=== PATIENT | female | born 1965 | race African-American/Black ===

== ENCOUNTER 2017-12-25 08:33 | Outpatient (CLI) | payer MEDICARE ==
--- NOTE | 2017-12-25 11:15 | CT ---
CT OF THE ABDOMEN WITH AND WITHOUT IV CONTRAST: INDICATION: Left adrenal mass. COMPARISON: Prior exam dated 05/15/16 and 05/10/16. TECHNIQUE: Multiple CT images were obtained of the abdomen utilizing 100 cc of Isovue 370. The adrenal mass pro tocol was followed. FINDINGS: There is a 1.6 cm left adrenal mass extending off the medial limb of he left adrenal gland. Precont rast Hounsfield units were 34.98. Venous phase Hounsfield units was 148.18. The 15-minuted delayed Hounsfield unit was 79.90. Absolute washout percentage was 60.3%. Relative washout was 46.1%. Ther e is a stable small cyst within the left hepatic lobe. There is a PEG catheter within the left upper quadrant of the abdomen. There is partial visualization of ventriculoperitoneal catheter projecting over the right hepatic dome. There is a small right pleural effusion. There is mild left basilar a telectasis. There are mild scattered vascular calcifications. No free fluid is evident within the a bdomen. There is thoracolumbar scoliosis. IMPRESSION: 1. Washout characteristics of the 1.6 cm left adrenal lesions is consistent with an adrenal adenoma. 2. Stable left hepatic lobe cyst. 3. Ventriculoperitoneal PEG catheter. POS: [facility]
[2017-12-25] MEDS ORDERED: Iopamidol 370 76% 100 ML VIAL ONE (13:54)
== END 2017-12-25 08:34 | disposition home or self-care (01) ==
LOC: CT 08:33
PROVIDERS: ATTEND Family Medicine
DX: E27.9 Disorder of adrenal gland, unspecified (principal); K76.89 Other specified diseases of liver; Z93.1 Gastrostomy status
CPT/HCPCS: 74170

== ENCOUNTER 2018-04-02 09:49 | Emergency (ER) | payer MEDICARE ==
--- NOTE | 2018-04-02 12:02 | RAD ---
1 VIEW ABDOMEN: Date: 04/02/18 HISTORY: PEG tube check. COMPARISON: 03/19/15. FINDINGS: Single view of the abdomen demonstrates contrast opacifying the stomach via a percutaneous feeding tu be. Contrast extends into the proximal small bowel. IMPRESSION: Feeding tube opacifies the stomach after administration of contrast. POS: [facility]
[2018-04-02] MEDS ORDERED: GASTROGRAFIN 30 ML BOT ONE (13:28)
== END 2018-04-02 12:22 | disposition home or self-care (01) ==
LOC: ERS 09:49
DX: K94.23 Gastrostomy malfunction (principal); E78.5 Hyperlipidemia, unspecified; I10 Essential (primary) hypertension; F32.9 Major depressive disorder, single episode, unspecified; Z79.899 Other long term (current) drug therapy
CPT/HCPCS: 74018

== ENCOUNTER 2018-08-15 19:51 | Emergency (ER) | payer MEDICARE ==
--- NOTE | 2018-08-15 20:20 | RAD ---
RIGHT HIP TWO VIEW 08/15/18 HISTORY: Fall. COMPARISON: None. FINDINGS: No fracture or malalignment. Soft tissues are unremarkable. IMPRESSION: No acute fracture or malalignment. POS: [facility]
--- NOTE | 2018-08-15 20:22 | RAD ---
PELVIS ONE VIEW: 08/15/18 HISTORY: Fall. COMPARISON: None. FINDINGS: No fracture. No malalignment. Obturator rings are intact. SI joints are unremarkable. IMPRESSION: No acute displaced fracture or malalignment. POS: [facility]
== END 2018-08-15 20:48 | disposition home or self-care (01) ==
LOC: ERS 19:51
DX: S70.01XA Contusion of right hip, initial encounter (principal); E78.5 Hyperlipidemia, unspecified; I10 Essential (primary) hypertension; Z86.73 Personal history of transient ischemic attack (TIA), and cerebral infarction without residual deficits; Z79.899 Other long term (current) drug therapy; W18.30XA Fall on same level, unspecified, initial encounter
CPT/HCPCS: 72170

== ENCOUNTER 2018-11-15 03:20 | Emergency (ER) | payer MEDICARE | END 2018-11-15 05:27 | disposition home or self-care (01) | LOC: ERS 03:20 | DX: Z43.1 Encounter for attention to gastrostomy (principal); I10 Essential (primary) hypertension; E78.00 Pure hypercholesterolemia, unspecified; E78.5 Hyperlipidemia, unspecified; Z86.73 Personal history of transient ischemic attack (TIA), and cerebral infarction without residual deficits | CPT/HCPCS: 43760 ==

== ENCOUNTER 2019-04-11 14:08 | Emergency (ER) | payer MEDICARE | END 2019-04-11 15:26 | disposition home or self-care (01) | LOC: ERS 14:08 | DX: K94.23 Gastrostomy malfunction (principal); E78.5 Hyperlipidemia, unspecified; I10 Essential (primary) hypertension; Z86.73 Personal history of transient ischemic attack (TIA), and cerebral infarction without residual deficits; Z79.899 Other long term (current) drug therapy | CPT/HCPCS: 43762; B4087 ==

== ENCOUNTER 2019-07-17 05:11 | Emergency (ER) | payer MEDICARE | END 2019-07-17 05:55 | disposition home or self-care (01) | LOC: ERS 05:11 | DX: K94.23 Gastrostomy malfunction (principal); I10 Essential (primary) hypertension; E78.5 Hyperlipidemia, unspecified; E78.00 Pure hypercholesterolemia, unspecified; Z86.73 Personal history of transient ischemic attack (TIA), and cerebral infarction without residual deficits | CPT/HCPCS: 43762; B4087 ==

== ENCOUNTER 2020-01-21 21:27 | Emergency (ER) | payer MEDICARE, OTHER ==
[~2020-01-21 21:27] MED LIST: GASTROGRAFIN 30 ML BOT ONE
--- NOTE | 2020-01-21 22:24 | RAD ---
Abdomen one view HISTORY: PEG tube replacement. COMPARISON: 04/02/2018. FINDINGS: Radiopaque feeding catheter over the left upper quadrant is in place with at the level of t he gastric body. Contrast material is present within the incompletely distended stomach. No evidence of feeding catheter complication. Large amount of stool throughout the colon. No evidence of bowel obstruction. Ventriculoperitoneal sh unt is partially visualized. IMPRESSION: Left upper quadrant peg tube appears in good radiographic position.
== END 2020-01-21 22:35 | disposition home or self-care (01) ==
LOC: ERS 21:27
DX: Z43.1 Encounter for attention to gastrostomy (principal); I10 Essential (primary) hypertension; E78.5 Hyperlipidemia, unspecified; F32.9 Major depressive disorder, single episode, unspecified; Z86.73 Personal history of transient ischemic attack (TIA), and cerebral infarction without residual deficits
CPT/HCPCS: 43762; 74018; Q9963

== ENCOUNTER 2020-05-12 12:50 | Emergency (ER) | payer MEDICARE | END 2020-05-12 14:09 | disposition home or self-care (01) | LOC: ERS 12:50 | DX: K94.23 Gastrostomy malfunction (principal); I10 Essential (primary) hypertension; E78.5 Hyperlipidemia, unspecified; F32.9 Major depressive disorder, single episode, unspecified; Z79.899 Other long term (current) drug therapy | CPT/HCPCS: 43762 ==

== ENCOUNTER 2020-08-01 05:09 | Emergency (ER) | payer MEDICARE ==
--- NOTE | 2020-08-01 07:26 | RAD ---
Radiograph abdomen one view: 08/01/2020 5:38 AM HISTORY: 55-year-old female with displaced PEG tube FINDINGS: Contrast injection into PEG tube results in contrast opacification of a nondistended lumen of gastric fundus and corpus. No leakage. IMPRESSION: Satisfactory position of percutaneous gastrostomy tube.
== END 2020-08-01 05:50 | disposition home or self-care (01) ==
LOC: ERS 05:09
DX: Z46.59 Encounter for fitting and adjustment of other gastrointestinal appliance and device (principal); I10 Essential (primary) hypertension; E78.5 Hyperlipidemia, unspecified; F32.9 Major depressive disorder, single episode, unspecified; Z79.899 Other long term (current) drug therapy; Z86.73 Personal history of transient ischemic attack (TIA), and cerebral infarction without residual deficits
CPT/HCPCS: 74018

== ENCOUNTER 2020-08-06 06:41 | Emergency (ER) | payer MEDICARE | END 2020-08-06 07:14 | disposition home or self-care (01) | LOC: ERS 06:41 | DX: Z46.59 Encounter for fitting and adjustment of other gastrointestinal appliance and device (principal); I10 Essential (primary) hypertension; E78.5 Hyperlipidemia, unspecified; Z86.73 Personal history of transient ischemic attack (TIA), and cerebral infarction without residual deficits; F32.9 Major depressive disorder, single episode, unspecified; Z79.899 Other long term (current) drug therapy | CPT/HCPCS: 43762 ==

== ENCOUNTER 2020-08-22 14:51 | Outpatient (CLI) | payer MEDICARE ==
--- NOTE | 2020-08-22 15:15 | RAD ---
2 views of the right hip: 08/22/2020 COMPARISON: 08/15/2018 HISTORY: Right hip pain, fall a few weeks ago FINDINGS: Catheter tubing overlies the left hemipelvis. There is mild superior joint space narrowing of the right hip with mild lateral acetabular osteophyte formation. No acute fracture or dislocation is seen. Stable irregularity is seen involving the inferior pubic rami. IMPRESSION: No acute osseous abnormality.
--- NOTE | 2020-08-22 15:21 | RAD ---
EXAM: XR Pelvis AP STANDARD PROVIDED CLINICAL HISTORY: Right hip pain. Patient fell a couple weeks ago. COMPARISON: 08/15/2018 FINDINGS: No fracture or dislocation is seen. There is partial visualization of a ventriculoperitoneal shunt ca theter overlying the right hemipelvis with radiopaque catheter overlying left lower quadrant which may represent partial visualization of a gastrostomy tube. IMPRESSION: No acute osseous abnormality.
== END 2020-08-22 14:52 | disposition home or self-care (01) ==
LOC: SCSRAD 14:51
PROVIDERS: ATTEND Family Medicine
DX: M25.551 Pain in right hip (principal)
CPT/HCPCS: 72170

== ENCOUNTER 2021-08-29 21:11 | Emergency (ER) | payer MEDICARE | END 2021-08-29 23:20 | disposition home or self-care (01) | LOC: ERS 21:11 | DX: K94.23 Gastrostomy malfunction (principal); I10 Essential (primary) hypertension; E78.5 Hyperlipidemia, unspecified; Z79.899 Other long term (current) drug therapy; Z86.73 Personal history of transient ischemic attack (TIA), and cerebral infarction without residual deficits | CPT/HCPCS: 43762; 74018; Q9963 ==

== ENCOUNTER 2022-01-10 09:19 | Inpatient (IN) | payer MEDICARE ==
[2022-01-10] MEDS ORDERED: hydrALAZINE 20 MG/ML VIAL ONE (09:40)
[2022-01-10] MEDS ORDERED: Iopamidol 370 76% 100 ML VIAL ONE (09:44)
[2022-01-10 09:49] LABS: #Eosinphils 0.1 thou/uL (0.0-0.7); #Monocytes 0.5 thou/uL (0.11-0.59); #Neutrophils 4.2 thou/uL (1.40-6.50); %Basophils 0.2 % (0.0-1.0); %Eosinophils 1.5 % (0.0-10.0); %Neutrophils 62.3 % (42.0-75.0); Hemoglobin 14.2 g/dL (12.0-16.0); Mean Corpuscular HGB CONC 31.6 g/dL (32.0-36.0); Mean Corpuscular Hemoglobin 27.4 pg (27.0-31.0); Mean Corpuscular Volume 86.8 fL (78.0-98.0); Mean Platelet Volume 8.6 fL (7.4-10.4); Platelet Count 161 thou/uL (130-400); RBC Distribution Width 12.3 % (11.5-14.5); Red Blood Cell (RBC) Count 5.16 mill/uL (4.20-5.40); White Blood Cell (WBC) Count 6.7 thou/uL (4.8-10.8)
[2022-01-10 10:02] LABS: Prothrombin Time 12.8 sec (12.0-14.7)
[2022-01-10 10:06] LABS: PTT 22.7 sec (22.9-36.1)
[2022-01-10] MEDS ORDERED: Aspirin Chewable 81 MG TAB ONE (10:40)
[2022-01-10] MEDS ORDERED: niCARdipine 25 MG in Sodium Chloride 0.9% 250 ML 250 ML IVPB SCH (11:15)
[2022-01-10 11:39] LABS: Chloride 105 mmol/L (98-107); Sodium 139 mmol/L (136-145)
[2022-01-10 11:40] LABS: Calcium 9.3 mg/dL (7.8-10.44); Glucose 86 mg/dL (70-105)
[2022-01-10 11:41] LABS: Globulin 4.2 g/dL (2.4-3.5); Protein, Total 8.2 g/dL (6.0-8.3)
[2022-01-10 11:42] LABS: Anion Gap 18 mmol/L (10-20); Bilirubin, Total 0.8 mg/dL (0.2-1.2); Carbon Dioxide 20 mmol/L (22-29)
[2022-01-10 11:44] LABS: Calc. Creatinine Clearance 0 mL/min (70-130)
[2022-01-10 11:45] LABS: BUN (Urea Nitrogen) 10 mg/dL (9.8-20.1)
[2022-01-10 11:46] LABS: ALT (SGPT) Less than 7 U/L (8-55); AST (SGOT) 15 U/L (5-34)
[2022-01-10 12:00] LABS: Alkaline Phosphatase 98 U/L (40-110)
[2022-01-10] MEDS ORDERED: Scopolamine 1.5 mg/72 hour Patch TOP PRN (12:17)
[2022-01-10] MEDS ORDERED: Polyvinyl Alcohol 1.4%/Povidone 0.6% Opth Drops EA EYE PRN (12:17)
[2022-01-10] MEDS ORDERED: Ondansetron ODT 4 MG TAB PER TUBE PRN (12:17)
[2022-01-10] MEDS ORDERED: hydrALAZINE 20 MG/ML VIAL SLOW IVP PRN (12:23)
[2022-01-10] MEDS ORDERED: Enoxaparin Sodium 40 MG/0.4 ML SYRINGE SC SCH (13:00)
[2022-01-10 14:09] LABS: SARS-CoV-2 NAA Rapid Test Not Detected (NotDetected)
[2022-01-10 16:54] VITALS: BMI 26.3
[2022-01-10] MEDS: hydrALAZINE 10 MG TAB PER TUBE SCH ×3 (17:21→21:19)
[2022-01-10] MEDS: Metoclopramide 10 MG/10 ML UDCUP PER TUBE SCH ×2 (17:35→21:01)
[2022-01-10] MEDS: Labetalol HCl 100 MG TAB PER TUBE SCH ×2 (21:00→21:19)
[2022-01-10] MEDS: Simvastatin 10 MG TAB PER TUBE SCH ×2 (21:00→21:20)
[2022-01-10] MEDS ORDERED: Rosuvastatin 5 MG TAB PER TUBE SCH (22:00)
[2022-01-11 05:33] LABS: #Eosinphils 0.1 thou/uL (0.0-0.7); #Lymphocytes 1.6 thou/uL (1.20-3.40); #Monocytes 0.7 thou/uL (0.11-0.59); #Neutrophils 6.5 thou/uL (1.40-6.50); %Basophils 0.1 % (0.0-1.0); %Eosinophils 0.6 % (0.0-10.0); %Lymphocytes 17.9 % (21.0-51.0); %Neutrophils 73.4 % (42.0-75.0); Mean Corpuscular HGB CONC 31.4 g/dL (32.0-36.0); Mean Corpuscular Volume 89.2 fL (78.0-98.0); Mean Platelet Volume 8.3 fL (7.4-10.4); Platelet Count 211 thou/uL (130-400); RBC Distribution Width 12.3 % (11.5-14.5); Red Blood Cell (RBC) Count 5.01 mill/uL (4.20-5.40); White Blood Cell (WBC) Count 8.8 thou/uL (4.8-10.8)
[2022-01-11 05:46] LABS: Anion Gap 13 mmol/L (10-20); BUN (Urea Nitrogen) 13 mg/dL (9.8-20.1); Calc. Creatinine Clearance 83 mL/min (70-130); Calcium 9.5 mg/dL (7.8-10.44); Carbon Dioxide 23 mmol/L (22-29); Cardiac Risk 3.2 (Less than 4.5); Chloride 104 mmol/L (98-107); Cholesterol 216 mg/dl (< 200 Desired); Glucose 92 mg/dL (70-105); HDL Cholesterol 67 mg/dL (>60 Neg Risk); LDL Cholesterol, Calculated 138 mg/dL; Magnesium 2.2 mg/dL (1.6-2.6); Potassium 3.3 mmol/L (3.5-5.1); Sodium 137 mmol/L (136-145); Triglycerides 54 mg/dL (Less than 150)
[2022-01-11] MEDS: hydrALAZINE 10 MG TAB PER TUBE SCH ×3 (08:41→21:28)
[2022-01-11] MEDS: Aspirin Chewable 81 MG TAB PER TUBE SCH (08:42)
[2022-01-11] MEDS: Enoxaparin Sodium 40 MG/0.4 ML SYRINGE SC SCH (08:42)
[2022-01-11] MEDS: Amlodipine 10 MG TAB PER TUBE SCH (08:42)
[2022-01-11] MEDS: Labetalol HCl 100 MG TAB PER TUBE SCH ×2 (08:42→21:28)
[2022-01-11] MEDS: Cholecalciferol 1,000 UNITS (25 MCG) TAB PER TUBE SCH (08:42)
[2022-01-11] MEDS: Lansoprazole 3 MG/ML ORAL SUSPENSION PER TUBE SCH ×2 (08:44→13:14)
[2022-01-11] MEDS: Metoclopramide 10 MG/10 ML UDCUP PER TUBE SCH ×3 (08:44→21:30)
[2022-01-11] MEDS ORDERED: FLU VACC QS2021-22(6MOS UP)/PF 60 MCG/0.5 ML SYRINGE IM ONE (09:00)
[2022-01-11] MEDS: Rosuvastatin 5 MG TAB PER TUBE SCH (21:27)
[2022-01-12] MEDS: Cholecalciferol 1,000 UNITS (25 MCG) TAB PER TUBE SCH (09:35)
[2022-01-12] MEDS: Lansoprazole 3 MG/ML ORAL SUSPENSION PER TUBE SCH (09:35)
[2022-01-12] MEDS: Labetalol HCl 100 MG TAB PER TUBE SCH ×2 (09:35→21:53)
[2022-01-12] MEDS: hydrALAZINE 10 MG TAB PER TUBE SCH ×3 (09:36→21:54)
[2022-01-12] MEDS: Aspirin Chewable 81 MG TAB PER TUBE SCH (09:36)
[2022-01-12] MEDS: Metoclopramide 10 MG/10 ML UDCUP PER TUBE SCH ×3 (09:36→21:54)
[2022-01-12] MEDS: Amlodipine 10 MG TAB PER TUBE SCH (09:36)
[2022-01-12] MEDS: Enoxaparin Sodium 40 MG/0.4 ML SYRINGE SC SCH (11:29)
[2022-01-12 14:11] LABS: Anion Gap 19 mmol/L (10-20); BUN (Urea Nitrogen) 18 mg/dL (9.8-20.1); Calc. Creatinine Clearance 88 mL/min (70-130); Calcium 9.2 mg/dL (7.8-10.44); Carbon Dioxide 19 mmol/L (22-29); Chloride 101 mmol/L (98-107); Glucose 85 mg/dL (70-105); Potassium 3.2 mmol/L (3.5-5.1); Sodium 136 mmol/L (136-145)
[2022-01-12] MEDS: Potassium Chloride 20 MEQ in Premix Bag 1 BAG IVPB SCH (16:56)
[2022-01-12] MEDS: Rosuvastatin 5 MG TAB PER TUBE SCH (21:53)
[2022-01-12] MEDS ORDERED: Potassium Bicarbonate/Cit Ac 20 MEQ TAB PER TUBE SCH (22:15)
[2022-01-13] MEDS ORDERED: Potassium Chloride 20 MEQ in Sodium Chloride 0.9% 250 ML 250 ML IVPB SCH (01:00)
[2022-01-13] MEDS: Potassium Chloride 20 MEQ in Premix Bag 1 BAG IVPB SCH (01:14)
[2022-01-13] MEDS ORDERED: Sodium Chloride 0.9% 500 ML IV SCH (04:00)
[2022-01-13 05:43] LABS: #Eosinphils 0.1 thou/uL (0.0-0.7); #Lymphocytes 1.1 thou/uL (1.20-3.40); #Monocytes 0.8 thou/uL (0.11-0.59); #Neutrophils 5.6 thou/uL (1.40-6.50); %Basophils 0.1 % (0.0-1.0); %Lymphocytes 14.3 % (21.0-51.0); %Monocytes 10.1 % (0.0-10.0); %Neutrophils 74.5 % (42.0-75.0); Hemoglobin 12.6 g/dL (12.0-16.0); Mean Corpuscular HGB CONC 31.8 g/dL (32.0-36.0); Mean Corpuscular Hemoglobin 28.6 pg (27.0-31.0); Mean Corpuscular Volume 90.1 fL (78.0-98.0); Mean Platelet Volume 8.2 fL (7.4-10.4); Platelet Count 172 thou/uL (130-400); RBC Distribution Width 12.4 % (11.5-14.5); Red Blood Cell (RBC) Count 4.39 mill/uL (4.20-5.40); White Blood Cell (WBC) Count 7.5 thou/uL (4.8-10.8)
[2022-01-13 06:05] LABS: BUN (Urea Nitrogen) 17 mg/dL (9.8-20.1); Calc. Creatinine Clearance 89 mL/min (70-130); Calcium 8.7 mg/dL (7.8-10.44); Carbon Dioxide 37 mmol/L (22-29); Chloride 104 mmol/L (98-107); Glucose 87 mg/dL (70-105); Potassium 4.3 mmol/L (3.5-5.1); Sodium 137 mmol/L (136-145)
[2022-01-13] MEDS ORDERED: Ipratropium/Albuterol Sulfate 4 GM AER IH PRN (07:02)
[2022-01-13 07:09] LABS: Anion Gap 6 mmol/L (10-20)
[2022-01-13] MEDS: Metoclopramide 10 MG/10 ML UDCUP PER TUBE SCH (09:40)
[2022-01-13] MEDS: Amlodipine 10 MG TAB PER TUBE SCH (09:41)
[2022-01-13] MEDS: Enoxaparin Sodium 40 MG/0.4 ML SYRINGE SC SCH (09:42)
[2022-01-13] MEDS: Aspirin Chewable 81 MG TAB PER TUBE SCH (09:43)
[2022-01-13] MEDS: Cholecalciferol 1,000 UNITS (25 MCG) TAB PER TUBE SCH (09:43)
[2022-01-13] MEDS: Lansoprazole 3 MG/ML ORAL SUSPENSION PER TUBE SCH (09:48)
[2022-01-13] MEDS ORDERED: Dextrose 5 %-0.45 % NaCl 1,000 ML IV SCH (16:45)
[2022-01-13] MEDS: Rosuvastatin 20 MG TAB PO SCH (21:13)
[2022-01-13] MEDS: Amlodipine 5 MG TAB PO SCH (21:13)
[2022-01-14 05:50] LABS: #Eosinphils 0.2 thou/uL (0.0-0.7); #Lymphocytes 1.2 thou/uL (1.20-3.40); #Monocytes 0.7 thou/uL (0.11-0.59); %Basophils 0.1 % (0.0-1.0); %Eosinophils 2.7 % (0.0-10.0); %Lymphocytes 20.1 % (21.0-51.0); %Monocytes 10.9 % (0.0-10.0); %Neutrophils 66.1 % (42.0-75.0); Hemoglobin 12.5 g/dL (12.0-16.0); Mean Corpuscular HGB CONC 31.8 g/dL (32.0-36.0); Mean Corpuscular Hemoglobin 29.1 pg (27.0-31.0); Mean Corpuscular Volume 91.7 fL (78.0-98.0); Mean Platelet Volume 8.4 fL (7.4-10.4); Platelet Count 182 thou/uL (130-400); RBC Distribution Width 12.6 % (11.5-14.5); White Blood Cell (WBC) Count 6.1 thou/uL (4.8-10.8)
[2022-01-14 06:08] LABS: Anion Gap 15 mmol/L (10-20); BUN (Urea Nitrogen) 14 mg/dL (9.8-20.1); Calc. Creatinine Clearance 106 mL/min (70-130); Carbon Dioxide 25 mmol/L (22-29); Chloride 103 mmol/L (98-107); Glucose 89 mg/dL (70-105); Potassium 4.1 mmol/L (3.5-5.1); Sodium 139 mmol/L (136-145)
[2022-01-14] MEDS: Lansoprazole 3 MG/ML ORAL SUSPENSION PER TUBE SCH (09:17)
[2022-01-14] MEDS: Enoxaparin Sodium 40 MG/0.4 ML SYRINGE SC SCH (09:17)
[2022-01-14] MEDS: Cholecalciferol 1,000 UNITS (25 MCG) TAB PER TUBE SCH (09:17)
[2022-01-14] MEDS: Aspirin Chewable 81 MG TAB PER TUBE SCH (09:18)
[2022-01-14] MEDS: Amlodipine 5 MG TAB PO SCH ×2 (09:18→21:24)
[2022-01-14] MEDS: Rosuvastatin 20 MG TAB PO SCH (21:24)
[2022-01-15] MEDS: Aspirin Chewable 81 MG TAB PER TUBE SCH (08:40)
[2022-01-15] MEDS: Enoxaparin Sodium 40 MG/0.4 ML SYRINGE SC SCH (08:40)
[2022-01-15] MEDS: Amlodipine 5 MG TAB PO SCH ×2 (08:40→21:58)
[2022-01-15] MEDS: Lansoprazole 3 MG/ML ORAL SUSPENSION PER TUBE SCH (08:41)
[2022-01-15] MEDS: Cholecalciferol 1,000 UNITS (25 MCG) TAB PER TUBE SCH (08:42)
[2022-01-15] MEDS: hydrALAZINE 25 MG TAB PO SCH ×2 (16:28→21:57)
[2022-01-15] MEDS: Rosuvastatin 20 MG TAB PO SCH (21:57)
[2022-01-16] MEDS: Cholecalciferol 1,000 UNITS (25 MCG) TAB PER TUBE SCH (09:21)
[2022-01-16] MEDS: Amlodipine 5 MG TAB PO SCH ×2 (09:21→20:01)
[2022-01-16] MEDS: hydrALAZINE 25 MG TAB PO SCH ×3 (09:22→20:01)
[2022-01-16] MEDS: Aspirin Chewable 81 MG TAB PER TUBE SCH (09:22)
[2022-01-16] MEDS: Enoxaparin Sodium 40 MG/0.4 ML SYRINGE SC SCH (09:22)
[2022-01-16] MEDS: Lansoprazole 3 MG/ML ORAL SUSPENSION PER TUBE SCH (09:25)
[2022-01-16] MEDS: Rosuvastatin 20 MG TAB PO SCH (20:01)
[2022-01-17] MEDS: Lansoprazole 3 MG/ML ORAL SUSPENSION PER TUBE SCH (09:38)
[2022-01-17] MEDS: Enoxaparin Sodium 40 MG/0.4 ML SYRINGE SC SCH (09:39)
[2022-01-17] MEDS: hydrALAZINE 25 MG TAB PO SCH ×3 (09:39→20:50)
[2022-01-17] MEDS: Amlodipine 5 MG TAB PO SCH ×2 (09:39→20:50)
[2022-01-17] MEDS: Cholecalciferol 1,000 UNITS (25 MCG) TAB PER TUBE SCH (09:39)
[2022-01-17] MEDS: Aspirin Chewable 81 MG TAB PER TUBE SCH (09:39)
[2022-01-17 12:13] LABS: SARS-CoV-2 PCR by NAA Not Detected (NotDetected)
[2022-01-17] MEDS ORDERED: Polyethylene Glycol 3350 17 GM Packet PER TUBE SCH (19:45)
[2022-01-17] MEDS: Rosuvastatin 20 MG TAB PO SCH (20:49)
[2022-01-18] MEDS: hydrALAZINE 25 MG TAB PO SCH ×3 (08:53→19:52)
[2022-01-18] MEDS: Amlodipine 5 MG TAB PO SCH ×2 (08:53→19:53)
[2022-01-18] MEDS: Cholecalciferol 1,000 UNITS (25 MCG) TAB PER TUBE SCH (08:53)
[2022-01-18] MEDS: Aspirin Chewable 81 MG TAB PER TUBE SCH (08:53)
[2022-01-18] MEDS: Lansoprazole 3 MG/ML ORAL SUSPENSION PER TUBE SCH (08:53)
[2022-01-18] MEDS: Enoxaparin Sodium 40 MG/0.4 ML SYRINGE SC SCH (08:54)
[2022-01-18] MEDS ORDERED: Polyethylene Glycol 3350 17 GM Packet PER TUBE SCH (09:00)
[2022-01-18 19:31] VITALS: BP 126/88; TEMP 98.7
[2022-01-18] MEDS: Rosuvastatin 20 MG TAB PO SCH (19:52)
== END 2022-01-18 20:30 | disposition home health service (06) | DRG 65 ==
LOC: ERS 09:19 → ERHOLD 12:30 → NEURO 16:32
PROVIDERS: ADMIT Internal Medicine; ATTEND Internal Medicine
DX: I63.81 Other cerebral infarction due to occlusion or stenosis of small artery (principal); G81.91 Hemiplegia, unspecified affecting right dominant side; R29.706 NIHSS score 6; Z20.822 Contact with and (suspected) exposure to COVID-19; I16.0 Hypertensive urgency; R29.810 Facial weakness; E78.5 Hyperlipidemia, unspecified; F32.A Depression, unspecified; R47.1 Dysarthria and anarthria; R13.12 Dysphagia, oropharyngeal phase; I10 Essential (primary) hypertension; I08.1 Rheumatic disorders of both mitral and tricuspid valves; E87.6 Hypokalemia; K21.9 Gastro-esophageal reflux disease without esophagitis; R00.1 Bradycardia, unspecified; I44.1 Atrioventricular block, second degree; Z28.21 Immunization not carried out because of patient refusal; Z86.73 Personal history of transient ischemic attack (TIA), and cerebral infarction without residual deficits; Z98.890 Other specified postprocedural states; Z88.8 Allergy status to other drugs, medicaments and biological substances; Z79.899 Other long term (current) drug therapy; Z93.1 Gastrostomy status; Z98.2 Presence of cerebrospinal fluid drainage device; Z86.69 Personal history of other diseases of the nervous system and sense organs
CPT/HCPCS: 36415; 36416; 70450; 70496; 70498; 70551; 71045; 74230; 80048; 80053; 80061; 83735; 84484; 85025; 85610; 85730; 93005; 93306; 94760; 95712; 95819; 95957; 96365; 96375; J0360; J1650; J3480; J7030; J7050; Q9967; U0002; U0003; U0005

== ENCOUNTER 2022-06-25 15:02 | Outpatient (CLI) | payer MEDICARE | END 2022-06-25 15:03 | disposition home or self-care (01) | LOC: BICMAMMO 15:02 | PROVIDERS: ATTEND Family Medicine | DX: Z12.31 Encounter for screening mammogram for malignant neoplasm of breast (principal); Z80.3 Family history of malignant neoplasm of breast | CPT/HCPCS: 77063; 77067 ==

== ENCOUNTER 2022-09-09 07:25 | Emergency (ER) | payer MEDICARE, OTHER | END 2022-09-09 07:46 | disposition home or self-care (01) | LOC: ERS 07:25 | DX: K94.23 Gastrostomy malfunction (principal); I10 Essential (primary) hypertension; E78.5 Hyperlipidemia, unspecified | CPT/HCPCS: 43762 ==

== ENCOUNTER 2024-06-22 15:11 | Outpatient (CLI) | payer OTHER | END 2024-06-22 15:12 | disposition home or self-care (01) | LOC: BICMAMMO 15:11 | PROVIDERS: ATTEND Family Medicine | DX: Z12.31 Encounter for screening mammogram for malignant neoplasm of breast (principal); Z80.3 Family history of malignant neoplasm of breast | CPT/HCPCS: 77063; 77067 ==